=== PATIENT | male | born 1980 | race Caucasian/White ===

== ENCOUNTER 2024-10-24 09:14 | Emergency (ER) | payer SELFPAY ==
[~2024-10-24] VITALS: Wt 77.1 kg
[2024-10-24] MEDS ORDERED: Ketorolac Tromethamine 15 MG/ML VIAL IV ONE (09:40)
[2024-10-24] MEDS ORDERED: diphenhydrAMINE hydrochloride 50 MG/ML VIAL IV ONE (09:40)
[2024-10-24] MEDS ORDERED: Metoclopramide Hydrochloride 10 MG/2 ML VIAL IV ONE (09:40)
[2024-10-24] MEDS ORDERED: SODIUM CHLORIDE 0.9% 1,000 ML IV ONE (09:40)
[2024-10-24 09:58] LABS: BASO % 0.5 % (0.0-1.0); EOS # 0.3 10*3/uL (0.0-0.4); EOS % 4.3 % (1.0-4.0); HEMATOCRIT 47.4 % (42.0-52.0); MEAN CELL VOLUME 88.6 fl (80.0-94.0); MEAN CORPUSCULAR HGB 28.4 pg (27.0-31.0); MEAN CORPUSCULAR HGB CONC 32.1 g/dl (33.0-37.0); MEAN PLATELET VOLUME 10.8 fl (9.6-12.3); MONO # 0.6 10*3/uL (0.1-1.0); MONO % 8.9 % (3.0-9.0); NEUT # 3.5 10*3/uL (2.3-7.9); NEUT % 53.8 % (47.0-73.0); PLATELET COUNT AUTOMATED 235 10*3/uL (130-400); RED BLOOD COUNT 5.35 10*6/uL (4.50-5.90); RED CELL DISTRI WIDTH 13.2 % (0-14.5); WHITE BLOOD COUNT 6.5 10*3/uL (4.8-10.8)
[2024-10-24 10:20] LABS: BUN 15 mg/dl (9-23); CHLORIDE 102 mmol/L (98-107)
[2024-10-24] MEDS ORDERED: REGLAN10 M1 PO (10:39)
== END 2024-10-24 10:48 | disposition home or self-care (01) ==
LOC: ED 09:14
PROVIDERS: Emergency Medicine
DX: G43.909 Migraine, unspecified, not intractable, without status migrainosus (principal); R11.10 Vomiting, unspecified